=== PATIENT | male | born 2000 | race Caucasian/White ===

== ENCOUNTER 2020-03-27 16:04 | Emergency (ER) | payer OTHER, SELFPAY ==
[2020-03-27 16:09] VITALS: BP 146/62; PULSE 77; TEMP 36.6; O2SAT 99
--- NOTE | 2020-03-27 16:19 | W.ED.GENAD ---
Discharge Plan Discharge Details Chief Complaint: Laceration Primary Care Provider: Natalia Benito V ED Provider: Leonardo Taylor Home Meds and New Rx's Prescriptions: No Action ibuprofen [Advil] 200 mg Tablet 200 mg PO Q6H PRNRF: 0 Medical Decision Making 19-year-old male cut his right hand at work proxy 1 week ago. He noticed erythema and swelling today, he manipulated the wound and had small discharge of sero-purulent fluid. No fever or chills he is otherwise well-appearing. Patient does have a cellulitis on the dorsum of the hand, was able to express a 1 cc amount of serous fluid from the wound which was sent for culture. I will place him on a course of Keflex. He understands homecare and to return for worsening. Do not find there is evidence of a fluid collection to pursue incision and drainage at this time. HPI General Mode of arrival: ambulatory. Date/Time Provider Initiated Documentation: 03/27/20 16:07. Limitations to Documentation: no limitations. Information obtained by: patient. History of Present Illness 19 year old M presents to the emergency department with the chief complaint of Right hand infection, described as moderate, Quality is described as aching and dull, and is localized to the right and upper extremity. Patient reports no radiation. Patient started experiencing this hour(s) and it has been constant. No relieving factors improve symptom(s), No exacerbating factors reported . Patient notes other (Minimal discharge from wound today at home); denies fever/chills. Patient did receive the following treatments prior to arrival, none Related Data Home Medications Medication Instructions Recorded Confirmed ibuprofen [Advil] 200 mg PO Q6H PRN 03/27/20 03/27/20 Allergies Allergy/AdvReac Type Severity Reaction Status Date / Time milk Allergy Severe Anaphylaxsi Unverified 03/27/20 16:19 s General Stated Complaint: Laceration SHIVAM: 4 Review of Systems Narrative: No fever or chills no vomiting, patient has otherwise been well. [facility] Social History Alcohol Intake: current Alcohol Intake frequency: 0-2 drinks per day Drug use: Daily Substance use type: marijuana Do you feel safe at home: Yes Exam Narrative Exam Narrative: GEN: awake, alert, oriented 3. Pleasant, well groomed, interactive. HEAD: Normocephalic, atraumatic EXT: Full ROM, edematous dorsum of the right hand there is a healing laceration overlying distal first metacarpal, there is overlying erythema. Motor and sensory testing is within normal limits. Neuro: Grossly normal neurologic exam, conversant, interactive. Psych: Speech fluent, thoughts congruent, affect normal Course Vital Signs Vital signs: Vital Signs Temperature 36.6 C 03/27/20 16:09 Pulse 77 03/27/20 16:09 Blood Pressure 146/62 H 03/27/20 16:09 Pulse Oximetry 99 03/27/20 16:09 Temperature 36.6 C 03/27/20 16:09 Temperature Source Skin 03/27/20 16:09 Pulse 77 03/27/20 16:09 Respiratory Effort Non-Labored 03/27/20 16:12 Blood Pressure 146/62 H 03/27/20 16:09 Blood Pressure Position Sitting 03/27/20 16:09 Pulse Oximetry 99 03/27/20 16:09 Oxygen Delivery Method Room Air 03/27/20 16:09 Oxygen Flow Rate 0 03/27/20 16:09 Pain Level 7 03/27/20 16:15
[2020-03-27] MEDS: Cephalexin 500 MG CAP, 4 CAPS/BTL PO (16:27)
[2020-03-27] MEDS: Tetanus & Diphtheria Tox,ADULT 0.5 ML VIAL IM (16:33)
== END 2020-03-27 16:30 | disposition home or self-care (01) ==
PROVIDERS: Emergency Provider Emergency Medicine; PCP Pediatrics
DX: S61.411A Laceration without foreign body of right hand, initial encounter (principal); W26.0XXA Contact with knife, initial encounter; L03.113 Cellulitis of right upper limb
CPT/HCPCS: 87077; 90471; 99284; 87070; 87186; 87205; 99283